=== PATIENT | male | born 1960 ===

== ENCOUNTER 2018-07-21 08:26 | Emergency (ER) | payer OTHER ==
[2018-07-21 08:52] VITALS: TEMP 97.9
[2018-07-21 09:19] VITALS: RESP 20
[2018-07-21] MEDS ORDERED: Sodium Chloride 0.9% 500 ML IV ONE (09:34)
[2018-07-21] MEDS ORDERED: Sodium Chloride 0.9% 1,000 ML ONE (09:43)
[2018-07-21 09:56] LABS: EOS % 1.3 % (0.0-4.0); HEMOGLOBIN 16.4 g/dL (12.0-18.0); LYMPH % 26.8 % (20.0-40.0); MEAN CELL VOLUME 87.9 fL (80.0-94.0); MEAN CORPUSCULAR HEMOGLOBIN 29.4 pg (27.0-31.0); MEAN CORPUSCULAR HGB CONC 33.5 g/dL (33.0-37.0); MEAN PLATELET VOLUME 9.1 fL (7.2-11.7); MONO # 0.2 K/uL (0.0-0.8); MONO % 5.9 % (0.0-10.0); NEUT # 2.4 K/uL (1.8-7.0); NRBC % 0.1 % (0.0-2.0); RBC 5.58 Mil/uL (4.40-5.90); RED CELL DISTRIBUTION WIDTH 14.1 % (11.5-14.5); WHITE BLOOD COUNT 3.8 K/uL (4.8-10.8)
[2018-07-21 10:01] LABS: URINE BILIRUBIN NEGATIVE (NEGATIVE); URINE BLOOD 1+ (NEGATIVE); URINE CLARITY Clear (Clear); URINE COLOR Yellow (YELLOW); URINE GLUCOSE (UA) NORMAL (Normal); URINE LEUKOCYTE ESTERASE NEG Leu/uL (Negative); URINE PROTEIN NEGATIVE (NEGATIVE); URINE UROBILINOGEN NORMAL mg/dL (0.2-1.0)
[2018-07-21 10:09] LABS: ALB/GLOB RATIO 1.3 (1.0-2.1); ALBUMIN 4.1 g/dL (3.5-5.0); ALT/SGPT 21 U/L (21-72); AST/SGOT 26 U/L (17-59); BLOOD UREA NITROGEN 10 mg/dL (9-20); CALCIUM 9.3 mg/dl (8.6-10.4); GFR NON-AFRICAN AMERICAN > 60
[2018-07-21 10:14] VITALS: PULSE 72; O2SAT 100
[2018-07-21] MEDS ORDERED: Labetalol 5mg/ml (4ml) ONE (10:14)
[2018-07-21] MEDS ORDERED: Labetalol 25mg/5ml Syringe IVP STA (10:28)
[2018-07-21] MEDS ORDERED: Iodixanol 320 MG/ML 100 ML BOTTLE IV ONE (10:42)
[2018-07-21 10:50] VITALS: BP 166/98
--- NOTE | 2018-07-21 12:11 | CT ---
Date of service: 07/21/2018 PROCEDURE: CT Abdomen and Pelvis with Oral contrast. HISTORY: Trauma, fall off ladder,hematuria, back pain COMPARISON: None. TECHNIQUE: Contiguous axial images of the abdomen pelvis following intravenous injection of approximately 100 cc Visipaque 320. Coronal and Sagittal reformats generated. This CT exam was performed using one or more of the following dose reduction techniques: Automated exposure control, adjustment of the mA and/or kV according to patient size, and/or use of iterative reconstruction technique. Radiation dose: Total exam DLP = 457.84 mGy-cm. FINDINGS: LOWER THORAX: Lung bases clear. No evidence of basilar infiltrate effusion or pneumothorax. -mildly enlarged. Enlarged. LIVER: Liver appears intact and exhibits exhibits relatively normal size measuring approximately 17 cm in CC dimension. Mild fatty hepatic infiltration. No obvious hepatic mass collection or calcification. GALLBLADDER AND BILE DUCTS: Gallbladder is physiologically distended. No evidence of intraluminal gallbladder calculi. PANCREAS: Pancreas appears unremarkable without masses collections or calcifications.. Pancreatic duct is visible though not significantly dilated. SPLEEN: Spleen appears intact. No splenic mass collection calcification or laceration. ADRENALS: No adrenal lesions. KIDNEYS AND URETERS: Kidneys demonstrate symmetric nephrograms. No evidence of nephrolithiasis or hydronephrosis. There is a small subcentimeter low-attenuation lesion lateral cortex mid to lower pole right kidney that may represent cyst however this focus exhibits Hounsfield units in the low 50s likely due surrounding volume averaging of enhanced liver and splenic renal parenchyma however followup ultrasound recommended to exclude a solid lesion. BLADDER: The urinary bladder is incompletely distended which part accounts thick-walled appearance. Muscular hypertrophy presumably contributes. Note that a cystitis or other invasive wall lesion not excluded. REPRODUCTIVE: The prostate gland is enlarged measuring nearly 5.2 cm in transverse dimension. Prostate gland is somewhat heterogeneous encroaches into the posterior floor of the urinary bladder. APPENDIX: Normal appendix. BOWEL: Evaluation of the bowel is somewhat limited due to the lack of oral contrast material. Stomach is incompletely distended. Visualized loops of small bowel exhibit normal contour and caliber. No evidence of acute mechanical small bowel obstruction.. Stool and air seen throughout the large bowel. PERITONEUM: Unremarkable. No fluid collection. No free air. There is a small fat containing umbilical hernia. LYMPH NODES: Unremarkable. No enlarged lymph nodes. VASCULATURE: Unremarkable. No aortic aneurysm. BONES: Minor multilevel degenerative spondylosis of the lower thoracic and lumbar spine. There are no acute compression fractures nor retropulsed fragments. OTHER FINDINGS: None. IMPRESSION: No acute intra abdominal posttraumatic sequela. Mild fatty hepatic infiltration. Probable hyperdense cyst right kidney however followup ultrasound recommended to confirm and exclude solid lesion as detailed above. Wall thickening of the urinary bladder likely in part due to incomplete distension and muscular hypertrophy however correlation with urinalysis recommended to exclude cystitis versus other intrinsic/invasive wall lesion.
--- NOTE | 2018-07-21 12:25 | US ---
Date of service: 07/21/2018 HISTORY: left sided testicular pain, TECHNIQUE: Realtime sonography through the scrotum with color and doppler flow. COMPARISON: None Available. FINDINGS: RIGHT TESTICLE: Measures 5.1 x 2.2 x 3.5 cm. Normal echotexture and flow. There is a small 2 mm calcification RIGHT EPIDIDYMIS: Epididymal head measures 1.1 x 0.9 x 1.0 cm. There is a 4 mm simple cyst in the head of the epididymis. Grossly unremarkable appearance with normal flow. LEFT TESTICLE: Measures 4.7 x 2.1 x 3.5 cm. Normal echotexture and flow. There is a 8 mm nonspecific calcification. LEFT EPIDIDYMIS: Epididymal head measures 0.9 x 0.9 x 1.0 cm. Grossly unremarkable appearance with normal flow. HYDROCELE: There are bilateral moderate hydroceles. VARICOCELE: None. OTHER FINDINGS: There is mild scrotal wall edema. IMPRESSION: No evidence for testicular mass, torsion or epididymal orchitis. Moderate bilateral hydroceles. Mild scrotal wall edema.
--- NOTE | 2018-07-21 13:03 | C.PDOC ---
History Of Present Illness 57 year old male, with no significant PMHx, presents to ED for evaluation of testicular pain and hematuria. Pt states he fell off a ladder and landed on his back about a week ago. Denies head injury, or LOC at that time. Otherwise, d enies n/v/d, abdominal pain, fever, or any other associated symptoms at this time. Time Seen by Provider: 07/21/18 09:31 Chief Complaint (Nursing): Male Genitourinary History Per: Patient History/Exam Limitations: no limitations Onset/Duration Of Symptoms: Days Current Symptoms Are (Timing): Still Present Alleviating Factors: None Recent travel outside of the [place]: No Additional History Per: Patient Past Medical History Reviewed: Historical Data, Nursing Documentation, Vital Signs Vital Signs: Last Vital Signs Temp 97.9 F 07/21/18 08:47 Pulse 72 07/21/18 10:13 Resp 20 07/21/18 10:13 BP 166/98 H 07/21/18 10:44 Pulse Ox 100 07/21/18 10:13 Family History: States: Unknown Family Hx - Social History Hx Alcohol Use: Yes Hx Substance Use: No - Immunization History Hx Tetanus Toxoid Vaccination: No Hx Influenza Vaccination: No Hx Pneumococcal Vaccination: No Review Of Systems Except As Marked, All Systems Reviewed And Found Negative. Constitutional: Negative for: Fever, Chills Cardiovascular: Negative for: Chest Pain Respiratory: Negative for: Shortness of Breath Gastrointestinal: Negative for: Nausea, Vomiting, Abdominal Pain, Diarrhea Genitourinary: Positive for: Hematuria, Scrotal Pain. Negative for: Incontinence, Penile Discharge Musculoskeletal: Positive for: Back Pain Neurological: Negative for: Headache Physical Exam - Physical Exam Appears: Non-toxic, No Acute Distress Skin: Normal Color, Warm, Dry, No Rash Head: Atraumatic, Normacephalic Eye(s): bilateral: Normal Inspection Oral Mucosa: Moist Neck: Normal ROM, Supple Chest: Symmetrical Cardiovascular: Rhythm Regular, No Friction Rub, No Murmur Respiratory: Normal Breath Sounds, No Accessory Muscle Use, No Rales, No R honchi, No Wheezing Gastrointestinal/Abdominal: Soft, No Tenderness Back: Normal Inspection, No CVA Tenderness, No Vertebral Tenderness, No Paraspinal Tenderness Extremity: Normal ROM, No Pedal Edema, No Swelling Neurological/Psych: Oriented x3, Normal Speech, Normal Motor Gait: Steady ED Course And Treatment - Laboratory Results Result Diagrams: 07/21/18 09:50 07/21/18 09:50 O2 Sat by Pulse Oximetry: 100 (RA) Pulse Ox Interpretation: Normal Medical Decision Making Medical Decision Making: Plan: * Blood work * Urinalysis * Abd & Pelvis CT * Testicular US * Tylenol * Labetalol * IV fluids Abd CT scan shows no trauma or laceration, bladder has some evidence of cystitis. Urine c&s sent and patient started on Cipro PO. Patient was instructed on very high BP and was instructed to start medications. Patient reports that he was prescribed medications years ago but never took them. On re-exam, the patient reports improvement of symptoms. Lungs are CTA, heart is RRR, abdomen is soft, non-tender and tolerating PO well. Follow up with the medical doctor within 1-2 days. return if worsened. Disposition - Disposition Referrals: Delbert Velez MD [Staff Provider] - [facility] [Outside] Disposition: HOME/ ROUTINE Disposition Time: 13:18 Condition: STABLE Additional Instructions: Follow up with the medical doctor within 1-2 days. return if worsened. Prescriptions: Ciprofloxacin [Cipro] 1 tab PO BID #14 tab Lisinopril [Zestril] 20 mg PO DAILY #30 tab Instructions: Blood in the Urine (Hematuria) in Adults, Hydrocele Forms: [employer] (Sinhala) - Clinical Impression Clinical Impression: Hematuria, Back contusion, Hydrocele - PA / HERBARIUM CURATOR / Resident Statement MD/DO has reviewed & agrees with the documentation as recorded. - Scribe Statement The provider has reviewed the documentation as recorded by the Scribe KP All medical record entries made by the Scribe were at my direction and personally dictated by me. I have reviewed the chart and agree that the record accurately reflects my personal performance of the history, physical exam, medical decision making, and the department course for this patient. I have also personally directed, reviewed, and agree with the discharge instructions and disposition.
--- NOTE | 2018-07-24 20:48 | CARD ---
APPROVED REPORT Date of service: 07/21/2018 EKG Measurement Heart [id number] <Conclusion> Normal sinus rhythm Normal ECG
== END 2018-07-21 13:58 | disposition home or self-care (01) ==
LOC: C.ER 08:26
DX: N43.3 Hydrocele, unspecified (principal); R31.9 Hematuria, unspecified; S30.0XXA Contusion of lower back and pelvis, initial encounter; W11.XXXA Fall on and from ladder, initial encounter
CPT/HCPCS: 74177; 76870; 80053; 81001; 85025; 87086; 96374; 99285; J7040; Q9967